=== PATIENT | male | born 1985 | race Caucasian/White ===

== ENCOUNTER 2016-07-11 01:07 | Emergency (ER) | payer MEDICAID ==
[2016-07-11 01:21] VITALS: TEMP 98; O2SAT 96
[2016-07-11] MEDS ORDERED: Naloxone 0.4 mg/ml Inj (Adult) IV ONE (01:57)
[2016-07-11] MEDS ORDERED: Sodium Chloride 0.9% 1,000 ML IV ONE (01:57)
--- NOTE | 2016-07-11 01:59 | C.PDOC ---
History Of Present Illness A 30 year old male with a history of asthma, was brought in via EMS c/o wheezing and SOB. [place] per EMS [place] Patient admits to drinking alcohol and using heroin tonight. Patient denies fever, chills, vomiting, nausea, trauma, LOC, or any other complaints. Patient received duoneb and solumedrol 125mg in the field. Time Seen by Provider: 07/11/16 01:50 Chief Complaint (Nursing): Shortness Of Breath History Per: EMS History/Exam Limitations: clinical condition, intoxication Onset/Duration Of Symptoms: Hrs Current Symptoms Are (Timing): Still Present Severity: Mild Recent travel outside of the [place]: No Additional History Per: Patient Past Medical History Reviewed: Historical Data, Nursing Documentation, Vital Signs Vital Signs: Last Vital Signs Temp 98.0 F 07/11/16 01:16 Pulse 83 07/11/16 03:23 Resp 16 07/11/16 03:23 BP 127/89 07/11/16 01:16 Pulse Ox 96 07/11/16 05:42 - Medical History PMH: Asthma - [facility] Procedures INJECT/INFUSE NEC (10/04/12) Family History: States: Unknown Family Hx - Social History Hx Alcohol Use: Yes Hx Substance Use: Yes - Immunization History Hx Tetanus Toxoid Vaccination: No Hx Influenza Vaccination: No Hx Pneumococcal Vaccination: No Review Of Systems Except As Marked, All Systems Reviewed And Found Negative. Constitutional: Negative for: Fever, Chills Cardiovascular: Negative for: Chest Pain, Palpitations Respiratory: Positive for: Shortness of Breath, Wheezing. Negative for: Cough Gastrointestinal: Negative for: Nausea, Vomiting Neurological: Negative for: Numbness, Headache, Dizziness Physical Exam - Physical Exam Appears: Non-toxic, No Acute Distress, Other (drowsy, alcohol on breath) Skin: Warm, Dry Head: Atraumatic, Normacephalic Eye(s): bilateral: Normal Inspection, Abnormal Pupil (pinpoint) Nose: Normal, No Flaring Oral Mucosa: Moist Neck: Normal ROM, No Midline Cervical Tenderness, No Paracervical Tenderness Chest: Symmetrical Cardiovascular: Rhythm Regular, No Murmur Respiratory: Normal Breath Sounds, No Rales, No Rhonchi, No Wheezing Extremity: Bilateral: Atraumatic, Normal Color And Temperature, Normal ROM Neurological/Psych: Normal Speech, Eyes Open With Command Disoriented To: Time, Situation Gait: Unable To Assess ED Course And Treatment O2 Sat by Pulse Oximetry: 96 (Room air) Pulse Ox Interpretation: Normal Medical Decision Making Medical Decision Making: Impression: 30 y.o male with history of asthma complains of wheezing. Admits to alcohol and heroin use tonight. Patient drowsy, but arousable. Patient was treated in field prior to ED arrival. Upon triage patient treated with additional 2 duonebs for wheezing. Upon my evaluation, no wheezing noted on exam. patient was snoring and sleepy when I evaluated him. Plan: * Duonebs already administered during triage * IV NS, Narcan Progress: Will observe in the ED ED OBSERVATION Discharge: Yes Date of observation admission: 07/11/16 Time of observation admission: 01:57 - Observation admission statement Patient is being placed in observation because:: alcohol intoxication, substance use, Asthma - Goals of Observation Goals of observation are:: sobriety - Progress Note Progress Note: 07/11/16 02:20 Patient is now awake and restless, states he feels uneasy. Benadryl IV ordered 07/11/16 04:19 Patient is sleeping in bed, arousable to verbal stimuli 07/11/16 05:41 Patient continues to sleep, no distress 07/11/16 06:19 Patient is now more arousable, he is asking for food. Patient ambulatory with steady gait. Will feed and discharge Disposition - Disposition Disposition: HOME/ ROUTINE Disposition Time: 06:19 Condition: STABLE - POA Present On Arrival: None - Clinical Impression Clinical Impression: Asthma, Alcohol intoxication, Heroin abuse - Scribe Statement The provider has reviewed the documentation as recorded by the Scribnasreen smith All medical record entries made by the Esthelaibe were at my direction and personally dictated by me. I have reviewed the chart and agree that the record accurately reflects my personal performance of the history, physical exam, medical decision making, and the department course for this patient. I have also personally directed, reviewed, and agree with the discharge instructions and disposition.
[2016-07-11] MEDS ORDERED: Sodium Chloride 0.9% 1,000 ML ONE (02:00)
[2016-07-11] MEDS ORDERED: Naloxone 0.4 mg/ml Inj (Adult) ONE (02:00)
[2016-07-11] MEDS ORDERED: DiphenhydrAMINE 50 mg/ml Inj IVP STA (02:23)
[2016-07-11] MEDS ORDERED: DiphenhydrAMINE 50 mg/ml Inj ONE (03:00)
[2016-07-11 03:23] VITALS: PULSE 83; RESP 16
[2016-07-11 06:50] VITALS: BP 115/78
== END 2016-07-11 06:50 | disposition home or self-care (01) ==
LOC: C.ER 01:07
DX: F10.120 Alcohol abuse with intoxication, uncomplicated (principal); F11.10 Opioid abuse, uncomplicated; Y90.9 Presence of alcohol in blood, level not specified; J45.909 Unspecified asthma, uncomplicated
CPT/HCPCS: 96374; 96375; 99285; J1200; J2310; J7040

== ENCOUNTER 2017-10-17 10:45 | Emergency (ER) | payer MEDICAID ==
[2017-10-17 11:14] VITALS: BP 112/72; PULSE 85; RESP 18; TEMP 98.7; O2SAT 94
--- NOTE | 2017-10-17 12:16 | C.PDOC ---
History Of Present Illness 32 year old male patient presents to the ER requesting detox for heroin and alcohol. Patient states his last drug use was this morning. Patient denies SI/ HI and have associated symptoms. Time Seen by Provider: 10/17/17 11:37 Chief Complaint (Nursing): Substance Abuse History Per: Patient History/Exam Limitations: no limitations Modifying Factor(s): Alcohol, Other (heroin) Past Medical History Reviewed: Historical Data, Nursing Documentation, Vital Signs Vital Signs: Last Vital Signs Temp 98.7 F 10/17/17 11:10 Pulse 85 10/17/17 11:10 Resp 18 10/17/17 11:10 BP 112/72 10/17/17 11:10 Pulse Ox 94 L 10/17/17 12:25 - Medical History PMH: Asthma - [facility] Procedures INJECT/INFUSE NEC (10/04/12) Family History: States: Unknown Family Hx - Social History Hx Alcohol Use: Yes Hx Substance Use: Yes (heroin IV) - Immunization History Hx Tetanus Toxoid Vaccination: No Hx Influenza Vaccination: No Hx Pneumococcal Vaccination: Yes Review Of Systems Except As Marked, All Systems Reviewed And Found Negative. Psych: Negative for: Suicidal ideation, Other (homicidal ideation) Physical Exam - Physical Exam Appears: Non-toxic, No Acute Distress Skin: Normal Color, Warm, Dry Head: Atraumatic, Normacephalic Eye(s): bilateral: Normal Inspection Neck: Normal ROM, Supple Chest: Symmetrical, No Deformity Cardiovascular: Rhythm Regular Respiratory: Normal Breath Sounds Back: No CVA Tenderness Extremity: Normal ROM (x4) Neurological/Psych: Oriented x3, Normal Speech, Other (cooperative) Gait: Steady ED Course And Treatment O2 Sat by Pulse Oximetry: 94 (RA) Pulse Ox Interpretation: Normal Progress Note: Impression: request detox for heroin and alcohol. Reassess: patient is resting comfortably and will be discharged. - Physician Consult Information Time Consulting Physician Contacted: 12:16 Outcome Of Conversation: D/W CRISIS, NO DETOX BEDS AVAIL Disposition Counseled Patient/Family Regarding: Studies Performed, Diagnosis, Need For Followup - Disposition Referrals: DETOX, PRESCREEN [Other] Disposition: HOME/ ROUTINE Disposition Time: 12:15 Condition: GOOD Instructions: Polysubstance Abuse (DC) Forms: [employer] ([place] Citizen) - Clinical Impression Clinical Impression: Polysubstance abuse - Scribe Statement The provider has reviewed the documentation as recorded by the Scribnasreen Osullivan Do Provider Attestation: All medical record entries made by the Scribe were at my direction and personally dictated by me. I have reviewed the chart and agree that the record accurately reflects my personal performance of the history, physical exam, medical decision making, and the department course for this patient. I have also personally directed, reviewed, and agree with the discharge instructions and disposition.
== END 2017-10-17 12:19 | disposition home or self-care (01) ==
LOC: C.ER 10:45
DX: F19.10 Other psychoactive substance abuse, uncomplicated (principal)